=== PATIENT | male | born 1950 | race Caucasian/White ===

== ENCOUNTER → 2024-02-20 08:29 | Outpatient (REF) | payer MEDICARE, OTHER, SELFPAY | LOC: HWRAD 08:29 | PROVIDERS: ATTENDING PHYSICIAN Specialist; FAMILY PHYSICIAN Family Medicine | DX: I10 Essential (primary) hypertension (principal); E26.9 Hyperaldosteronism, unspecified; D63.1 Anemia in chronic kidney disease; R80.9 Proteinuria, unspecified; N18.4 Chronic kidney disease, stage 4 (severe) | CPT/HCPCS: 76770 ==